=== PATIENT | female | born 1985 ===

== ENCOUNTER 2023-05-13 09:46 | Day surgery (SDC) | payer BC ==
[2023-05-13] MEDS: Lactated Ringers 1,000 ML IV SCH (10:03)
[2023-05-13] MEDS ORDERED: Propofol 200 MG/20 ML SDV ONE (10:12)
[2023-05-13] MEDS ORDERED: Ketamine 200 MG/20 ML MDV ONE (10:12)
[2023-05-13] MEDS ORDERED: fentaNYL 50 MCG/ML SDV ONE (10:12)
[2023-05-13] MEDS ORDERED: Flumazenil 0.1 MG/ML 10 ML MDV ONE (10:12)
[2023-05-13] MEDS ORDERED: Midazolam 1 MG/ML 2 ML SDV ONE (10:12)
[2023-05-13] MEDS ORDERED: Lidocaine 2% 20 ML MDV ONE (10:12)
== END 2023-05-13 11:16 | disposition home or self-care (01) ==
LOC: CC.SDS 09:46
PROVIDERS: ATTEND Family Medicine
DX: R10.13 Epigastric pain (principal); G44.229 Chronic tension-type headache, not intractable; F41.9 Anxiety disorder, unspecified; R53.83 Other fatigue; Z79.899 Other long term (current) drug therapy; F17.200 Nicotine dependence, unspecified, uncomplicated
CPT/HCPCS: 00731; 87081; J2250; J2704; J3010; J3490; J7120